=== PATIENT | male | born 1945 | race Caucasian/White ===

== ENCOUNTER 2019-07-06 19:08 | Emergency (ER) | payer MEDICARE, OTHER ==
[2019-07-06 21:28] LABS: ADD MAN DIFF? NO; BASOPHILS % 0.4 % (0.0-2.0); EOSINOPHILS # 0.1 10^3/ul (0.0-0.5); EOSINOPHILS % 0.8 % (0.0-7.0); HEMATOCRIT 43.2 % (42.0-52.0); HEMOGLOBIN 14.1 g/dl (14.0-18.0); LYMPHOCYTES % 24.8 % (15.0-51.0); MEAN CORPUSCULAR HEMOGLOBIN 32.4 pg (29.0-33.0); MEAN CORPUSCULAR HGB CONC 32.6 g/dl (32.0-37.0); MEAN CORPUSCULAR VOLUME 99.3 fl (82.0-101.0); MEAN PLATELET VOLUME 9.3 fl (7.4-10.4); MONOCYTE # 0.7 10^3/ul (0.3-0.9); NEUTROPHIL # 5.1 10^3/ul (1.6-7.5); NEUTROPHILS % 64.9 % (39.0-77.0); PLATELET COUNT 273 10^3/UL (140-415); RED BLOOD COUNT 4.35 10^6/ul (4.70-6.10); RED CELL DISTRIBUTION WIDTH 12.3 % (11.5-14.5)
[2019-07-06 21:28] LABS: WHITE BLOOD COUNT 7.9 10^3/ul (4.8-10.8)
[2019-07-06 21:53] LABS: ANION GAP 11 (5-13); BLOOD UREA NITROGEN 15 mg/dl (7-20); C-REACTIVE PROTEIN 1.1 mg/dl (0.0-0.9); CALCIUM 9.9 mg/dl (8.4-10.2); CARBON DIOXIDE 32 mmol/L (21-31); CHLORIDE 96 mmol/L (97-110); CREATININE 0.67 mg/dl (0.61-1.24); GLUCOSE 112 mg/dl (70-220); POTASSIUM 4.2 mmol/L (3.5-5.1); SODIUM 139 mmol/L (135-144)
[2019-07-06 22:32] LABS: ERYTHROCYTE SEDIMENTATION RATE 12 mm/Hr (0-20)
[2019-07-06] MEDS ORDERED: SOD CHLORIDE 0.9% 100 ML (22:40)
[2019-07-06] MEDS ORDERED: IOHEXOL 300MG/ML 150 ML BTL (22:40)
[2019-07-07] MEDS: SOD CHLORIDE 0.9% 1,000 ML IV (00:29)
[2019-07-07] MEDS ORDERED: SOD CHLORIDE 0.9% 1,000 ML IV (06:20)
[2019-07-07] MEDS ORDERED: ACETAMINOPHEN 325 MG TAB PO ×2 (06:30)
[2019-07-07] MEDS ORDERED: BISACODYL (EC) 5 MG TAB PO (06:30)
[2019-07-07] MEDS ORDERED: NACL 0.9% 3 ML SYG IV (06:30)
[2019-07-07] MEDS ORDERED: morphine 2 MG INJ IV (06:30)
[2019-07-07] MEDS ORDERED: DOCUSATE SODIUM 100 MG CAP PO (06:30)
[2019-07-07] MEDS ORDERED: ONDANSETRON 4 MG INJ IV ×2 (06:30)
== END 2019-07-07 08:21 | disposition home or self-care (01) ==
LOC: E/R 07-07 08:21 → FTE 19:08
DX: C41.1 Malignant neoplasm of mandible (principal)
CPT/HCPCS: 36415; 70491; 80048; 85025; 85651; 86140; 99285-25